=== PATIENT | male | born 1995 | race Caucasian/White ===

== ENCOUNTER → 2019-08-24 10:37 | Outpatient (CLI) | payer OTHER, SELFPAY ==
[2019-08-24 12:01] LABS: Semen Viscosity Normal (Normal); Sperm Count 41 mil/mm3 (20-160); WBCs,Semen Small
[2019-08-24 12:02] LABS: Motility Quality Good Progression (Mod-Rapid); Sperm Motility 70 % (50-90)
[2019-08-24 14:01] LABS: Sperm Morphology Normal (Normal)
[2019-08-24 14:59] LABS: 3Hr Motility Quality Good Progression (Mod-Rapid); 3Hr Sperm Motility 70 % (50-60)
== END ==
PROVIDERS: Visit Provider Obstetrics & Gynecology
DX: Z31.440 Encounter of male for testing for genetic disease carrier status for procreative management (principal)
CPT/HCPCS: 89320

== ENCOUNTER 2022-08-10 21:57 | Emergency (ER) | payer OTHER, SELFPAY ==
[2022-08-10 21:58] VITALS: BP 125/86; PULSE 71; RESP 16; TEMP 37.1; O2SAT 98; BMI 13.7
--- NOTE | 2022-08-10 22:24 | CT_ITS ---
PROCEDURE INFORMATION: Exam: CT Head Without Contrast Exam date and time: 08/10/2022 10:44 PM Age: 27 years old Clinical indication: Headache; Migraine; Patient HX: PT C/O pain right sided that worsened today; Additional info: ROWLAND TECHNIQUE: Imaging protocol: Computed tomography of the head without contrast. Radiation optimization: All CT scans at this facility use at least one of these dose optimization techniques: automated exposure control; mA and/or kV adjustment per patient size (includes targeted exams where dose is matched to clinical indication); or iterative reconstruction. Other protocol: This patient has received 0 known CTs and 0 known cardiac nuclear medicine studies in the 12 months prior to the current study. COMPARISON: No relevant prior studies available. FINDINGS: Brain: Normal. No hemorrhage. Unremarkable white matter. No mass effect. Cerebral ventricles: No ventriculomegaly. Paranasal sinuses: There is moderate diffuse mucosal thickening throughout the right paranasal sinuses as well as within the left ethmoid air cells. Mastoid air cells: Visualized mastoid air cells are well aerated. Bones/joints: Unremarkable. No acute fracture. Soft tissues: Unremarkable. IMPRESSION: Moderate findings of diffuse chronic paranasal sinusitis. No acute intracranial abnormality
[2022-08-10 22:31] LABS: Basophils # 0.1 K/mm3 (0-0.2); Basophils % 1.1 % (0.1-2.0); Eosinophils # 0.4 K/mm3 (0.0-0.4); Hematocrit 43.2 % (42.0-52.0); Hemoglobin 14.8 g/dL (14.1-18.0); Mean Corpuscular HGB Conc 34.2 g/dL (31.8-35.4); Mean Corpuscular Hemoglobin 30.5 pg (27.0-31.2); Mean Corpuscular Volume 89.3 fl (80-94); Mean Platelet Volume 8.1 fl (7.4-10.4); Monocytes # 0.5 K/mm3 (0.1-1.0); Neutrophils # 6.2 K/mm3 (1.8-7.8); Neutrophils % 67.9 % (37.0-80.0); Platelet Count 341 K/mm3 (142-424); Red Blood Count 4.84 M/mm3 (4.60-6.20); Red Cell Distribution Width 12.4 % (11.5-17.5); White Blood Count 9.1 K/mm3 (4.8-10.8)
[2022-08-10 22:36] LABS: Alanine Aminotransferase 28 U/L (12-78); Albumin Level 4.4 g/dl (3.5-5.0); Albumin/Globulin Ratio 1.5 (1.1-1.8); Alkaline Phosphatase 50 U/L (38-126); Anion Gap 9.9 mEq/L (5-15); Aspartate Amino Transferase 27 U/L (17-59); Bilirubin,Total 0.3 mg/dl (0.2-1.3); Blood Urea Nitrogen 15 mg/dl (9-20); Calcium 8.7 mg/dl (8.4-10.2); Carbon Dioxide 32 mmol/L (22.0-30.0); Chloride 101 mmol/L (98-107); Creatinine Clearance Estimated 95 mL/min (50-200); Estimated Glomerular Filt Rate 116 ml/min (>60); GFR (African American) 140 ML/MIN (>60); Globulin 2.9 g/dL (1.3-3.2); Glucose 116 mg/dl (74-100); Magnesium 1.7 mg/dl (1.6-2.3); Potassium 3.9 mmoL/L (3.5-5.1); Sodium 139 mmol/L (136-145); Total Protein,Serum 7.3 g/dl (6.3-8.2)
[2022-08-10 22:41] LABS: C-Reactive Protein 2.8 mg/L (0-4)
[2022-08-10 22:55] LABS: Procalcitonin 0.036 ng/mL (0.0-2.0)
[2022-08-10 23:00] VITALS: BP 143/79; PULSE 68; O2SAT 99
--- NOTE | 2022-08-10 23:10 | HMH.EDHA ---
Discharge Plan Disposition Patient Disposition: Home, Self-Care Prescriptions Prescriptions: New prednisone [prednisone] 20 mg tablet 20 mg PO BID Qty: 10 0RF cephalexin [cephalexin] 500 mg capsule 500 mg PO TID Qty: 30 0RF No Action sulfacetamide sodium 10 % drops 2 drp OPHTHALMIC QID 7 Days Qty: 15 0RF Referrals Follow up/Referrals: Orlando Velasquez MD [Primary Care Provider] - See instructions Clinical Impressions Clinical Impression: Sinusitis Instructions Patient Instructions: DI for Sinusitis Discharge ED Provider: Tam (ED)Srinivasa Headache HPI General Chief Complaint: Headache Stated Complaint: ROWLAND Time Seen by Provider: 08/10/22 23:10 Mode of Arrival: Ambulatory Source of Information: Patient, Spouse and Medical Record Limitations: No Limitations Description of Symptoms (Recalled from ER Triage Doc. by RN): pt c/o ROWLAND, dizziness x 2 days History of Present Illness HPI Narrative: pt with rt sided rowland over the last 2 days w/o fever/rash or trauma - no sig hx of rowland - MD Complaint: headache Onset (ago): day(s) Onset description: gradual Location: right and frontal Severity: moderate Treatments prior to arrival: acetaminophen Related Data Previous Rx's Medication Instructions Recorded sulfacetamide sodium 10 % eye drops 2 drp ophthalmic (eye) QID 04/07/21 conjunctivitis 7 days #15 mL cephalexin 500 mg capsule 500 mg PO TID #30 caps 08/10/22 prednisone 20 mg tablet 20 mg PO BID #10 tabs 08/10/22 Allergies Allergy/AdvReac Type Severity Reaction Status Date / Time No Known Allergies Allergy Verified 04/07/21 16:54 [facility] History Hepatitis A Screen Attestation statement:: This patient has been screened for Hepatitis A risk factors. I have reviewed the patient's past medical history: Yes Other Surgeries: Yes No Previous Surgery Social History Smoking Status: Never smoker Alcohol Intake: never Occupational Status: employed Family Hx:: Non-contributory [facility] Disclaimer: The information contained in this section may have been updated after the patient was seen, as this information can be updated by other users. Social History Smoking Status: Never smoker alcohol intake: never current occupational status: employed Travel in the last 8 weeks: None ROS Obtained: Yes All systems reviewed & no additional complaints except as documented Physical Exam General General appearance: alert Head Head exam: normocephalic Eye Eye exam: Present PERRL and EOMI; Absent scleral icterus or nystagmus ENT ENT exam: Present mucous membranes moist, TM's normal bilaterally and other (sinus tenderness ) Neck Neck exam: Present full ROM and trachea midline; Absent meningismus Respiratory Respiratory exam: Present normal lung sounds bilaterally; Absent respiratory distress Cardiovascular Cardiovascular exam: Present regular rate Abdominal Exam Abdominal exam: Present soft Neurological Exam Neurological exam: Present alert, oriented X3 and CN II-XII intact; Absent motor sensory deficit Psychiatric Psychiatric exam: Present normal affect Skin Skin exam: Absent rash Medical Decision Making Medical Records Medical records reviewed: Yes I reviewed the patient's medical records. Ugo Inquiry Pt receiving controlled substance: No Vital Signs: 08/10/22 21:58 08/10/22 23:00 Temperature 98.7 F Temperature Source Oral Pulse Rate 68 Pulse Rate [Right] 71 Respiratory Rate 16 Blood Pressure 143/79 H Blood Pressure [Right Arm] 125/86 Blood Pressure Mean [Right Arm] 99 02 Sat by Pulse Oximetry 98 99 Lab Data Lab results reviewed: Yes I reviewed the patient's lab results. Lab Results 08/10/22 22:15: WBC 9.1, RBC 4.84, Hgb 14.8, Hct 43.2, MCV 89.3, MCH 30.5, MCHC 34.2, RDW 12.4, Plt Count 341, MPV 8.1, Neut % (Auto) 67.9, Lymph % (Auto) 22.0, [place] % (Auto) 5.0, Eos % (Auto) 4.0, Baso % (Auto) 1.1, Neut # (Auto) 6.2, Lymph # (Auto) 2.0, [place] # (Aut
--- NOTE | 2022-08-10 23:16 | PC.NURSE ---
in room @ this time.
[2022-08-10 23:40] VITALS: BP 139/87; PULSE 65; RESP 16; TEMP 37.1; O2SAT 98
[2022-08-10 23:47] LABS: Erythrocyte Sedimentation Rate 10 mm/hr (0-15)
== END 2022-08-10 23:46 | disposition home or self-care (01) ==
PROVIDERS: Emergency Provider Emergency Medicine; PCP Family Medicine
DX: J01.90 Acute sinusitis, unspecified (principal)
CPT/HCPCS: 70450; 80053; 83735; 84145; 85025; 85651; 86140; 96361; 96374; 96375; 99285; J0131; J0696; J2405

== ENCOUNTER 2022-11-29 15:28 | Emergency (ER) | payer OTHER, SELFPAY ==
[2022-11-29 15:29] VITALS: BP 126/80; PULSE 93; RESP 18; TEMP 36.7; O2SAT 98; BMI 23.1
[2022-11-29 16:00] VITALS: BP 129/79; PULSE 86; RESP 20; O2SAT 99
--- NOTE | 2022-11-29 16:01 | XR_ITS ---
PROCEDURE INFORMATION: Exam: XR Right Hand Exam date and time: 11/29/2022 4:03 PM Age: 27 years old Clinical indication: Pain; Hand; Right; Additional info: Hand pain, cannot extend pinky finger TECHNIQUE: Imaging protocol: Radiologic exam of the right hand. Views: 3 or more views. COMPARISON: No relevant prior studies available. FINDINGS: Bones/joints: Normal. Soft tissues: Normal. IMPRESSION: No acute findings.
--- NOTE | 2022-11-29 16:02 | HMH.EDGENADL ---
Discharge Plan Disposition Patient Disposition: Home, Self-Care Condition: Good Prescriptions Prescriptions: New ibuprofen 600 mg tablet 600 mg PO Q8H PRN (Reason: pain) Qty: 30 0RF No Action sulfacetamide sodium 10 % drops 2 drp OPHTHALMIC QID 7 Days Qty: 15 0RF prednisone [prednisone] 20 mg tablet 20 mg PO BID Qty: 10 0RF cephalexin [cephalexin] 500 mg capsule 500 mg PO TID Qty: 30 0RF Referrals Follow up/Referrals: Orlando Velasquez MD [Primary Care Provider] - See instructions Activity Restrictions/Add. Instructions Additional Instructions/Restrictions: You have been evaluated for right finger weakness. This is possibly due to overuse injury, tendinitis. Please take anti-inflammatory medication as scheduled. Follow-up with your primary care doctor for symptom recheck in 1 to 2 days. You may benefit from physical therapy. Return to the emergency department at once for any new or worsening symptoms, pain, weakness, any other concern Clinical Impressions Clinical Impression: Tendinitis of finger of right hand Instructions Patient Instructions: DI for Tendinitis Discharge ED Provider: Elisa Delong Adult HPI General Chief complaint: PAIN Stated complaint: right hand pinkie numb Time Seen by Provider: 11/29/22 15:45 Mode of Arrival: Ambulatory Source of Information: Patient Limitations: No Limitations Description of Symptoms (Recalled from ER Triage Doc. by RN): pt presents to ED c/o right pinky pain. pt denies any known injury. History of Present Illness HPI narrative: 27-year-old male presenting to the emergency department with difficulty moving his right pinky finger. Symptoms started today after work. He realized that when he tried to extend his finger it seems to get stuck. He is unable to extend the finger to match other fingers of the hand. He is able to flex at the joints. Denies any abnormal sensation, numbness, tingling. Denies pain in his hand or feeling like there is a cramp. No injuries today. He does work in manual labor. Denies working repetitive motions or vibrations. No medications prior to arrival. Nothing this is ever happened before. Related Data Previous Rx's Medication Instructions Recorded sulfacetamide sodium 10 % eye drops 2 drp ophthalmic (eye) QID 04/07/21 conjunctivitis 7 days #15 mL cephalexin 500 mg capsule 500 mg PO TID #30 caps 08/10/22 prednisone 20 mg tablet 20 mg PO BID #10 tabs 08/10/22 ibuprofen 600 mg tablet 600 mg PO Q8H PRN pain #30 tabs 11/29/22 Allergies Allergy/AdvReac Type Severity Reaction Status Date / Time No Known Allergies Allergy Verified 04/07/21 16:54 [facility] Disclaimer: The information contained in this section may have been updated after the patient was seen, as this information can be updated by other users. Social History Smoking Status: Current every day smoker alcohol intake: never current occupational status: employed Travel in the last 8 weeks: None ROS Obtained: Yes All systems reviewed & no additional complaints except as documented Cardiovascular Cardiovascular: Denies chest pain, Denies irregular heart rhythm and Denies palpitations Musculoskeletal Musculoskeletal: Reports deformity, Reports joint stiffness, Denies joint swelling, Reports limited range of motion, Denies numbness, Reports stiffness and Denies tingling Integumentary/Breasts Skin/Breast: Denies redness and Denies rash Neurologic Neurologic: Denies numbness and Denies tingling Endocrine Endocrine: Denies palpitations Physical Exam General General appearance: alert and in no apparent distress Head Head exam: atraumatic and normocephalic Respiratory Respiratory exam: Present normal lung sounds bilaterally; Absent respiratory distress or wheezes Cardiovascular Cardiovascular exam: Present regular rate and normal rhythm Extremities Exam Extremities exam: Present normal inspection; Absent full ROM (Right pin
[2022-11-29 17:11] VITALS: BP 112/66; PULSE 600; RESP 18; TEMP 36.7; O2SAT 98
== END 2022-11-29 17:13 | disposition home or self-care (01) ==
PROVIDERS: Emergency Provider Emergency Medicine; PCP Family Medicine
DX: M67.843 Other specified disorders of tendon, right hand (principal); F17.210 Nicotine dependence, cigarettes, uncomplicated
CPT/HCPCS: 73130; 99283; 99284

== ENCOUNTER → 2023-03-03 16:52 | Outpatient (CLI) | payer OTHER, SELFPAY ==
--- NOTE | 2023-03-03 16:57 | XR_ITS ---
FINAL REPORT TECHNIQUE: 3 views left index finger CLINICAL HISTORY: PUNCTURE WOUND OF LEFT INDEX FINGER COMPARISON: None FINDINGS: LEFT INDEX FINGER: 3 views of the left index finger failed to reveal any evidence of fracture or dislocation. No radiopaque foreign body is present. IMPRESSION: No acute bony abnormality identified. Reviewed, Interpreted and Dictated by Felipe Ambrocio III, MD Transcribed by Karla Stephens Authenticated and [facility]
== END ==
PROVIDERS: PCP Family Medicine; Visit Provider Physician Assistant
DX: S61.231A Puncture wound without foreign body of left index finger without damage to nail, initial encounter (principal)
CPT/HCPCS: 73140

== ENCOUNTER → 2023-05-05 16:51 | Outpatient (CLI) | payer OTHER, SELFPAY ==
--- NOTE | 2023-05-05 16:55 | XR_ITS ---
PROCEDURE INFORMATION: Exam: XR Left Knee Exam date and time: 05/05/2023 4:57 PM Age: 28 years old Clinical indication: Pain; Knee; Left TECHNIQUE: Imaging protocol: Radiologic exam of the left knee. Views: 3 views. COMPARISON: No relevant prior studies available. FINDINGS: Bones/joints: No acute fracture or malalignment. Soft tissues: Normal. IMPRESSION: No acute osseous findings.
== END ==
PROVIDERS: PCP Family Medicine; Visit Provider Family Medicine
DX: M25.562 Pain in left knee (principal)
CPT/HCPCS: 73562

== ENCOUNTER 2024-10-28 21:23 | Emergency (ER) | payer BC, SELFPAY ==
[2024-10-28 21:27] VITALS: BP 122/86; PULSE 78; RESP 20; TEMP 36.6; O2SAT 100; BMI 24.3
--- NOTE | 2024-10-28 21:29 | XR_ITS ---
PROCEDURE INFORMATION: Exam: XR Chest Exam date and time: 10/28/2024 9:32 PM Age: 29 years old Clinical indication: Dyspnea TECHNIQUE: Imaging protocol: Radiologic exam of the chest. Views: 1 view. Total images: 1 COMPARISON: No relevant prior studies available. FINDINGS: Tubes, catheters and devices: EKG leads are present. Lungs: Poor lung expansion with mild bibasilar atelectasis versus acute infiltrate. No pulmonary vascular congestion or interstitial edema. Pleural spaces: Unremarkable. No pleural effusion. No pneumothorax. Heart/Mediastinum: Unremarkable. No cardiomegaly. No mediastinal widening or hilar enlargement. Bones/joints: Unremarkable. IMPRESSION: Poor lung expansion with mild bibasilar atelectasis versus acute infiltrate.
--- NOTE | 2024-10-28 21:29 | HMH.EDCP ---
Discharge Plan Disposition Patient Disposition: Home, Self-Care Prescriptions Prescriptions: No Action omeprazole 20 mg capsule,delayed release(DR/EC) 20 mg PO Patient Comments: TAKE ONE CAPSULE BY MOUTH 30 MINUTES BEFORE MORNING MEAL mupirocin 2 % ointment 1 applic topical BID 14 Days Qty: 15 0RF doxycycline hyclate 100 mg capsule 100 mg PO BID 14 Days Qty: 28 0RF mupirocin 2 % ointment 1 applic topical BID 14 Days Qty: 15 0RF Referrals Follow up/Referrals: Puma Johnson II, MD [Staff Physician] - See instructions Activity Restrictions/Add. Instructions Additional Instructions/Restrictions: As discussed for your as needed discomfort which is almost certainly secondary to gastroesophageal reflux disease I would recommend that you take an antacid such as Maalox in addition to [id number] Pepcid. Given the chronicity of your symptoms I also recommend you follow-up with Dr. Johnson to discuss the possibility of getting a diagnostic endoscopy. I also recommend that you avoid medications and foods and drinks that could exacerbate this such as energy drinks as discussed. Return with any significant worsening of her symptoms black or bloody stools throwing up of any blood or other concerns. Clinical Impressions Clinical Impression: GERD (gastroesophageal reflux disease), Atypical chest pain, Epigastric abdominal pain Print Language Print Language: Palestinian Discharge ED Provider: Lili Ty HPI General Chief Complaint: Chest Pain Stated Complaint: Chest Pain Time Seen by Provider: 10/28/24 21:23 History of Present Illness HPI narrative: Patient is a 29-year-old male presenting today with epigastric and inferior midline chest discomfort. This started about 6 hours ago. Has a history of GERD and is on a PPI chronically has never had an endoscopy has been recently drinking many red bowls. Denies any drinking of alcohol or any type of drug use. No postprandial abdominal discomfort. This chest discomfort is nonexertional no diaphoresis or radiation associated with it. States the has felt a little bit tired and fatigued and mildly lightheaded today. No history of any early cardiac disease in his family. He has no cardiopulmonary disease that he is aware of. Related Data Home Medications ?Medication ?Instructions ?Recorded ?Confirmed omeprazole 20 mg capsule,delayed 20 mg PO 12/28/23 03/23/24 release Previous Rx's ?Medication ?Instructions ?Recorded mupirocin 2 % topical ointment 1 applic topical BID infection 14 12/28/23 days #15 grams doxycycline hyclate 100 mg capsule 100 mg PO BID infection 14 days 03/02/24 #28 caps mupirocin 2 % topical ointment 1 applic topical BID infection 14 03/02/24 days #15 grams Allergies Allergy/AdvReac Type Severity Reaction Status Date / Time No Known Allergies Allergy Verified 03/23/24 16:03 [facility] Disclaimer: The information contained in this section may have been updated after the patient was seen, as this information can be updated by other users. Family History (Updated 03/23/24 @ 16:09 by MAGALY Adhikari) Grandfather Cancer Stroke Father Diabetes Heart attack Hypertension Mother Hypertension Social History Smoking Status: Never smoker alcohol intake: never current occupational status: employed Travel in the last 8 weeks?: None Have you lived/traveled outside US in past 30 days?: No Contact w/someone who lives/traveled outside US past 30 days?: No Exposure to someone with infectious disease in past 14 days?: No Do you have a fever (greater than 100.4 F or 38 C)?: No Have you tested positive for COVID-19?: No Exposed to someone with COVID-19 in past 14 days?: No Do you have a sore throat?: No Do you have a cough?: No Do you have any weakness?: No Do you have any diarrhea?: No Are you experiencing any unusual bleeding?: No Do you have any muscle aches/pain?: No Do you have any abdominal pain?: No Are you experiencing loss of taste or smell?: No Other Medical History Have you received the Pneumonia Vaccine: No ROS Obtained: Yes All systems reviewed & no additional complaints except as documented Physical Exam General General appearance: alert Respiratory Respiratory exam: Present normal lung sounds bilaterally; Absent respiratory distress Cardiovascular Cardiovascular exam: Present regular rate and normal rhythm Abdominal Exam Abdominal exam: Present soft; Absent distention or tenderness Neurological Exam Neurological exam: Present alert and oriented X3 HEART Score HEART Score HEART Score assessment performed?: Yes History (anamnesis): Slightly suspicious ECG: Normal Age: <45 years Risk factors: No known risk factors Troponin: </= normal limit HEART Score: 0 Critical Care Critical Care Time Critical Care Time: No Medical Decision Making Ugo Inquiry Pt receiving controlled substance: No Vital Signs Vital Signs: 10/28/24 21:27 10/28/24 21:30 10/28/24 21:32 Temperature 97.9 F Temperature Source Oral Pulse Rate 63 76 Pulse Rate [Left] 78 Respiratory Rate 20 16 Blood Pressure 111/67 Blood Pressure [Right Arm] 122/86 Blood Pressure Mean [Right Arm] 98 Blood Pressure Source [Right Arm] Automatic Cuff Blood Pressure Position [Right Arm] Sitting 02 Sat by Pulse Oximetry 100 96 Oxygen Delivery Method Room Air Lab Data Lab results reviewed: Yes I reviewed the patient's lab results. Labs: Lab Results 10/28/24 21:25: WBC 9.7, RBC 4.68, Hgb 14.3, Hct 42.1, MCV 90.0, MCH 30.6, MCHC 34.0, RDW 11.8, Plt Count 288, MPV 10.4, Neut % (Auto) 53.0, Lymph % (Auto) 32.6, [place] % (Auto) 7.2, Eos % (Auto) 6.3, Baso % (Auto) 0.5, Neut # (Auto) 5.2, Lymph # (Auto) 3.2, [place] # (Auto) 0.7, Eos # (Auto) 0.6 H, Baso # (Auto) 0.1, Sodium 139, Potassium 3.8, Chloride 103, Carbon Dioxide 31 H, Anion Gap 8.8, BUN 11, Creatinine 1.00, Estimated Creat Clear 133, Estimated GFR 88, Est GFR ( Amer) 107, Glucose 100, Calcium 8.9, Total Bilirubin 0.3, AST 29, ALT 28, Alkaline Phosphatase 46, Troponin I < 0.01, Total Protein 6.9, Albumin 4.4, Globulin 2.5, Albumin/Globulin Ratio 1.8, Lipase 124 10/28/24 21:25 10/28/24 21:25 Response Orders (Tests/Meds): ED MEDICATIONS Generic Name Dose Route Start Last Admin Trade Name Freq PRN Reason Stop Dose Admin Sodium Chloride 1,000 mls @ 999 mls/hr 10/28/24 21:30 10/28/24 21:33 Sod Chlor 0.9% 1000ml Bag IV 10/28/24 22:30 999 mls/hr .Q1H1M SUZANNE Administration Sodium Chloride 8 ml 10/28/24 21:29 Sodium Chloride 0.9% 10ml Vial IV 11/27/24 21:28 NEEDED PRN dilute pepcid Discontinued Medications Generic Name Dose Route Start Last Admin Trade Name Coy PRN Reason Stop Dose Admin Belladonna Alkaloids 60 ml 10/28/24 21:29 10/28/24 21:33 Belladonna Alkaloids 60 Ml Ml PO 10/28/24 21:30 60 ml ONCE ONE Administration Famotidine 20 mg 10/28/24 21:29 10/28/24 21:33 Famotidine 20mg/2ml Vial IV 10/28/24 21:30 20 mg ONCE ONE Administration ORDERS Category Date Time Status CXR --portable [XR chest portable] Stat Exams 10/28/24 21:29 Taken CBC w/Auto Diff [Complete Blood Count Auto Diff] Stat Lab 10/28/24 21: Completed CMP [Comprehensive Metabolic Panel] Stat Lab 10/28/24 21: Completed Lipase Stat Lab 10/28/24 21: Completed Trop I [Troponin I] Stat Lab 10/28/24 21:25 Completed Troponin I Q3H Lab 10/29/24 00:30 Ordered Troponin I Q3H Lab 10/29/24 03:30 Ordered ECG Data Tracing #1: Attestation: I reviewed this ECG and interpreted as documented below: ECG Narrative: Ventricular of 72 normal sinus rhythm no acute ischemic changes noted no significant conduction abnormalities there is a normal axis MDM Narrative Medical Decision Narrative: 29-year-old with above history and physical most likely on the GERD spectrum however other pathology on the differential such as acute coronary syndrome anxiety pancreatitis etc. Will get a single troponin to rule out acute coronary syndrome which is very unlikely. EKG was nonischemic and unconcerning. He has a heart score of 0 assuming a negative troponin. Patient is PERC negative therefore pulmonary embolism is exceedingly unlikely will not pursue a D-dimer or CT PE. GI cocktail and IV Pepcid have been ordered and I will reassess him shortly after this workup is completed in addition to a chest x-ray. Chest x-ray performed which I personally interpreted which shows no evidence of any acute cardiopulmonary pathology. Reassessment 10:05 PM patient feels dramatically better after his GI cocktail and Pepcid this is strongly suggestive of gastroesophageal reflux disease being the primary cause of his symptoms today. Given the chronicity of his symptoms I have recommended he follow-up outpatient with gastroenterology for a possible scope. I recommend that he stop drinking energy drinks and that he avoid any other exacerbating foods or drinks. He has been advised to take [id number] antacids and Pepcid as needed for his symptomatic control. He may continue his PPI if he would like. But this is not helping him from a as needed standpoint. Labs unremarkable specifically a troponin is undetectably low and had a very low suspicion for acute coronary syndrome therefore will not get serial troponins at this point. Patient is agreeable to follow-up with Dr. Johnson and return with worsening symptoms. Patient was discharged in improved and stable condition.
[2024-10-28 21:30] VITALS: BP 111/67; PULSE 63; RESP 16; O2SAT 96
--- NOTE | 2024-10-28 21:30 | ECG_ITS ---
APPROVED REPORT Exam: Resting ECG HR:72 bpm ECG Measurements Heart Rate 72 AXES NM 148 P 64 QRSd 93 QRS 39 QT 365 T 47 QTc 389 Conclusion SINUS RHYTHM NORMAL ECG Electronically signed by : AIXA LAZARO, 10/29/2024 06:53:06
[2024-10-28 21:32] VITALS: PULSE 76
[2024-10-28] MEDS: 0.9 % SODIUM CHLORIDE 1000ML 1,000 ML 999 ML IV (21:33)
[2024-10-28] MEDS: BELLADONNA ALKALOIDS 60 ML ML PO (21:33)
[2024-10-28] MEDS: FAMOTIDINE 20MG/2ML VIAL 20 MG IV (21:33)
[2024-10-28 21:35] LABS: Basophils # 0.1 K/mm3 (0-0.2); Basophils % 0.5 % (0.1-2.0); Eosinophils # 0.6 Kmm3 (0.0-0.4); Eosinophils % 6.3 % (0.1-12.0); Hematocrit 42.1 % (42.0-52.0); Hemoglobin 14.3 g/dL (14.1-18.0); Lymphocytes # 3.2 K/mm3 (0.7-4.5); Lymphocytes % 32.6 % (10-50); Mean Corpuscular Hemoglobin 30.6 pg (27.0-31.2); Mean Platelet Volume 10.4 fl (7.4-10.4); Monocytes # 0.7 K/mm3 (0.1-1.0); Monocytes % 7.2 % (1.7-9.3); Neutrophils # 5.2 K/mm3 (1.8-7.8); Nucleated Red Blood Cells # 0 10^3/uL; Nucleated Red Blood Cells % 0 %; Platelet Count 288 K/mm3 (142-424); Red Blood Count 4.68 M/mm3 (4.60-6.20); Red Cell Distribution Width 11.8 % (11.5-17.5); Red Cell Distribution Width-SD 38.2 fL; White Blood Count 9.7 K/mm3 (4.8-10.8)
[2024-10-28 21:38] LABS: Albumin Level 4.4 g/dl (3.5-5.0); Chloride 103 mmol/L (98-107)
[2024-10-28 21:39] LABS: Potassium 3.8 mmoL/L (3.5-5.1); Sodium 139 mmol/L (136-145)
[2024-10-28 21:40] LABS: Lipase 124 U/L (23-300)
[2024-10-28 21:41] LABS: Alanine Aminotransferase 28 U/L (12-78); Anion Gap 8.8 mEq/L (5-15); Aspartate Amino Transferase 29 U/L (17-59); Blood Urea Nitrogen 11 mg/dl (9-20); Carbon Dioxide 31 mmol/L (22.0-30.0); Creatinine Clearance Estimated 133 mL/min (50-200); Estimated Glomerular Filt Rate 88 ml/min (>60); GFR (African American) 107 ML/MIN (>60)
[2024-10-28 21:42] LABS: Albumin/Globulin Ratio 1.8 (1.1-1.8); Alkaline Phosphatase 46 U/L (38-126); Bilirubin,Total 0.3 mg/dl (0.2-1.3); Calcium 8.9 mg/dl (8.4-10.2); Globulin 2.5 g/dL (1.3-3.2); Glucose 100 mg/dl (74-100); Total Protein,Serum 6.9 g/dl (6.3-8.2)
[2024-10-28 21:54] LABS: Troponin I < 0.01 ng/ml (0.00-0.034)
[2024-10-28 22:12] VITALS: BP 105/58; PULSE 63; RESP 15; TEMP 36.6; O2SAT 97
== END 2024-10-28 22:13 | disposition home or self-care (01) ==
PROVIDERS: Emergency Provider Student in an Organized Health Care Education/Training Program
DX: R07.89 Other chest pain (principal); R10.13 Epigastric pain; K21.9 Gastro-esophageal reflux disease without esophagitis
CPT/HCPCS: 71045; 80053; 83690; 84484; 85025; 93005; 96361; 96374; 99284; J7030

== ENCOUNTER 2025-02-19 09:32 | Day surgery (SDC) | payer BC, SELFPAY ==
[2025-02-16 08:34] VITALS: BMI 26.8
[2025-02-19] VITALS (7 sets, daily range): BP systolic 103–120; BP diastolic 62–73; PULSE 63–75; RESP 16–18; TEMP 36.1–36.4; O2SAT 93–100
[2025-02-19] MEDS: LACTATED RINGERS 1000ML 1,000 ML 50 ML IV (09:51)
--- NOTE | 2025-02-19 10:18 | P.PNANES_ITS ---
[facility] Disclaimer: The information contained in this section may have been updated after the patient was seen, as this information can be updated by other users. Medical History (Updated 02/19/25 @ 09:52 by Pilo Robb RN) GERD (gastroesophageal reflux disease) Surgical History Hx of tonsillectomy Family History Grandfather Cancer Stroke Father Diabetes Heart attack Hypertension Mother Hypertension Social History Smoking Status: Never smoker alcohol intake: never substance use type: denies use current occupational status: employed Travel in the last 8 weeks?: None [facility] Anesthesia Checklist Patient Identification Patient Identification: Arm Band Structural Data Admitted From: Home Planned Operative Procedure/s: EGD Consent for Planned Operative Procedure(s) Verified: Yes Verified Documents: Surgical Consent and History and Physical NPO Status Verified Time NPO: 00:00 Additional verifications Anesthesia Reactions: No Airway Assessment Mallampati Score:: Class II C-Spine Mobility Assessed: Yes TMJ Mobility Assessed: Yes Dentition: Good Dentition Neurological Assessment Level of Consciousness: Awake, Alert and Appropriate Anesthesia Plan Anesthesia Risk discussed: Yes Anesthesia Plan: Verified ASA Class: I Anesthesia Type: MAC
--- NOTE | 2025-02-19 10:40 | EXP.HP ---
History of Present Illness *Admission Date: 02/19/25 *History of present illness: Mr. Escobar is a 30-year-old gentleman who is here for diagnostic EGD secondary to noncardiac chest pain/esophageal chest pain and GERD. The examination is deemed medically necessary for diagnostic EGD. The patient has been seen, interviewed and examined prior to the procedure by both myself and the anesthesia provider. [facility] Disclaimer: The information contained in this section may have been updated after the patient was seen, as this information can be updated by other users. Medical History (Updated 02/19/25 @ 10:42 by Puma Johnson II, MD) GERD (gastroesophageal reflux disease) Surgical History Hx of tonsillectomy Family History Grandfather Cancer Stroke Father Diabetes Heart attack Hypertension Mother Hypertension Social History (Updated 02/19/25 @ 10:19 by Tyler Patel CRNA) Smoking Status: Never smoker alcohol intake: never substance use type: denies use current occupational status: employed Travel in the last 8 weeks?: None Have you lived/traveled outside [place] in past 30 days?: No Contact w/someone who lives/traveled outside [place] past 30 days?: No Exposure to someone with infectious disease in past 14 days?: No Do you have a fever (greater than 100.4 F or 38 C)?: No Have you tested positive for COVID-19?: No Exposed to someone with COVID-19 in past 14 days?: No Do you have a sore throat?: No Do you have a cough?: No Do you have any weakness?: No Do you have any diarrhea?: No Are you experiencing any unusual bleeding?: No Do you have any muscle aches/pain?: No Do you have any abdominal pain?: No Are you experiencing loss of taste or smell?: No Other Medical History Have you received the Pneumonia Vaccine: No Review of Systems Review of Systems Review of systems (narrative): Negative *Cardiovascular Comments: Negative *Gastrointestinal Comments: Negative *Genitourinary Comments: Negative *Musculoskeletal Comments: Negative *Neurologic Comments: Negative Meds Home Medications and Allergies Home Medications ?Medication ?Instructions ?Recorded ?Confirmed ?Type albuterol sulfate 90 mcg/actuation 2 puff inhalation NEEDED PRN 12/06/24 02/19/25 History aerosol inhaler Allergy Symptoms montelukast 10 mg tablet 10 mg PO DAILY 12/06/24 02/19/25 History omeprazole 40 mg capsule,delayed 40 mg PO DAILY 12/06/24 02/19/25 History release New Prescriptions to Start Prescriptions: Allergies Allergy/AdvReac Type Severity Reaction Status Date / Time No Known Allergies Allergy Verified 02/19/25 09:53 Exam Data for Last 24 hours Vital signs and Labs for Last 24 Hours: Temp Pulse Resp BP Pulse Ox O2 Del Method 97.5 F L 72 18 120/73 100 Room Air 02/19/25 09:53 02/19/25 09:53 02/19/25 09:53 02/19/25 09:53 02/19/25 09:53 02/19/25 09:53 I & O for Last 24 hours: Intake & Output 02/16/25 02/17/25 02/18/25 02/19/25 23:59 23:59 23:59 23:59 Weight 209 lb *Routine HEENT Exam Head: Present normocephalic Eye: Present EOMI and PERRL ENT: Present mucous membranes moist *Routine Neck Exam Neck: Present supple *Routine Respiratory Exam Respiratory: Present CTA bilaterally *Routine Cardiovascular Exam Cardiovascular: Present RRR *Routine Abdominal Exam Abdominal: Present soft and normoactive bowel sounds; Absent tenderness *Routine Rectal Exam Rectal:: deferred *Routine Genitalia Exam Genitalia:: deferred *Routine Extremities Exam Extremities: Absent cyanosis, clubbing or edema *Routine Skin Exam Skin: Present warm; Absent rash *Routine Neurological Exam Neurological: Present alert and oriented X3 Assessment and Plan *Assessment and plan (1) Epigastric abdominal pain: Status: Acute Category: Medical Code(s): R10.13 - Epigastric pain (2) GERD (gastroesophageal reflux disease): Status: Acute Category: Medical Code(s): K21.9 - Gastro-esophageal reflux disease without esophagitis (3) Non-cardiac chest pain: Status: Acute Category: Medical Code(s): R07.89 - Other chest pain Plan A/P: 1. Noncardiac chest pain, epigastric pain and GERD is the preprocedural diagnosis. The patient will be anesthetized/sedated using MAC sedation. The patient has been seen and examined. Cardiac and lung assessment prior to the examination is stable. Proceed with planned diagnostic EGD.
--- NOTE | 2025-02-19 11:11 | P.PCN_ITS ---
[facility] Procedure Note Date: 02/19/25 Time: 11:20 Procedure Note:: Upper Endoscopy Procedure Report: Esophagogastroduodenoscopy with cold biopsies Endoscopost: Puma Johnson II, MD Referring Physician: Orlando Velasquez MD Date of Procedure: February 19, 2025 Equipment: Olympus GIF-1100 standard upper endoscope Sedation: MAC sedation Indications: Mr. Escobar is a 30-year-old gentleman who has been having intermittent burning chest pain and some epigastric discomfort and dyspepsia. He is on omeprazole. He did go to the ED in October 2024 and received a GI cocktail that helped to improve his symptoms. His labs at that time were normal with normal liver and pancreatic chemistries. Chest x-ray and EKG at that time was normal. The patient has done well lately. He does get occasional epigastric abdominal discomfort. He does report bloating, belching, early satiety and occasional nausea. He reports no dysphagia. He has regular bowel function. This is his first upper endoscopy. Procedure: Prior to the procedure, a history and physical exam was performed, and patient's medications and allergies were reviewed. The risks, benefits and alternatives of the sedation and procedure were discussed with the patient. All questions were answered and informed consent was obtained. The patient was brought to the procedure room. Patient identification and proposed procedure were verified by the physician and the nurse. The patient was placed in a left lateral decubitus position and the scope was passed under direct vision. Throughout the procedure, the patient's blood pressure, pulse, and oxygen saturations were monitored continuously. The upper GI endoscopy was accomplished without difficulty. The patient tolerated the procedure well. Findings: The scope was passed directly into the upper esophagus and advanced to the third portion of the duodenum. A cold biopsy was taken from the second portion of the duodenum for the disaccharidase assay. The post bulbar duodenum, ampulla and duodenal bulb were grossly normal but there was some cobblestoning/scalloping in the first portion of the duodenum and duodenal bulb and cold biopsies were obtained from the first portion of the duodenum to rule out celiac disease. The scope was withdrawn through a normal duodenal bulb and pylorus into the stomach. There was mild antral gastropathy. The body and fundus of the stomach were normal. Cold biopsies were taken from the antrum. Upon retroflexion there was no hiatal hernia. The scope was then withdrawn into the esophagus. There was no evidence of reflux esophagitis or Parada's. There were tertiary contractions and evidence of mild esophageal dysmotility. The remainder of the esophageal mucosa was normal. Impression: 1. Nonerosive GERD with mild esophageal dysmotility 2. Mild antral gastropathy 3. Mild scalloping/cobblestoning of duodenal conniventes in duodenal bulb and duodenal first portion Plan: I will follow-up the biopsies and disaccharidase assay. I will discuss the findings and treatment options with the patient and family. I will obtain celiac panel.
[2025-02-20 14:12] LABS: Deamidated Gliadin Abs, IgA 18 units (0-19); Deamidated Gliadin Abs, IgG 30 units (0-19)
[2025-02-22 09:13] LABS: Reticulin IgA Antibody Negative titer (Neg:<1:2.5)
[2025-02-22 15:12] LABS: Interpretation Notes (.); Lactase 0.47 (>/= 14.0); Maltase 16.95 (>/= 110.0); Palatinase 1.18 (>/= 8.5); Reference Notes (.); Sucrase 3.3 (>/= 25.0)
== END 2025-02-19 12:24 | disposition home or self-care (01) ==
PROVIDERS: PCP Family Medicine; Visit Provider Internal Medicine Gastroenterology
PROC: 0DJ08ZZ Inspection of Upper Intestinal Tract, Via Natural or Artificial Opening Endoscopic (ICD-10-PCS; CPT 43239; principal; 2025-02-19 11:00)
DX: K21.9 Gastro-esophageal reflux disease without esophagitis (principal); K31.9 Disease of stomach and duodenum, unspecified; Z79.899 Other long term (current) drug therapy
CPT/HCPCS: 43239; 36415; 82657; 86231; 86256; 86258; 86364; J2003; J2704; J7120